=== PATIENT | male | born 1955 | race Hispanic/Latino ===

== ENCOUNTER 2019-06-15 | Emergency (ER) | payer MEDICARE ==
[~2019-06-15] MED LIST: GLYBURIDE5 MG PO; LOPRESSOR50 M1 PO; METFORMIN850 MG PO; PRILOSEC20 MG/CAP PO; TELMISARTAN40 MG PO; ZITHROMAX250 MG PO
--- NOTE | 2019-06-15 23:54 | NUR ---
BREATHING TREATMENT GIVEN.
[2019-06-16] MEDS ORDERED: ASPIRIN81 MG PO (00:13)
[2019-06-16] MEDS ORDERED: FENOFIBRATE145 MG PO (00:14)
[2019-06-16] MEDS ORDERED: AMOX/K CLAV875 M1 PO (02:18)
[2019-06-16] MEDS ORDERED: TESSALON PERLE100 MG PO (02:18)
[2019-06-16] MEDS ORDERED: PROVENTIL108 MCG/AC IN (02:18)
[2019-06-16] MEDS ORDERED: ALBUTEROL SUL0.083 % IN (03:28)
== END 2019-06-16 03:24 | disposition home or self-care (01) ==
DX: J40 Bronchitis, not specified as acute or chronic (principal)

== ENCOUNTER 2024-03-17 18:55 | Emergency (ER) | payer MEDICARE ==
[2024-03-17] VITALS (8 sets, daily range): BP systolic 129–151; BP diastolic 66–83
[~2024-03-17] VITALS: Ht 162.6 cm; Wt 102.0 kg
[~2024-03-17 18:55] MED LIST changes: +ALBUTEROL SUL0.083 % IN; +AMOX/K CLAV875 M1 PO; +ASPIRIN81 MG PO; +FENOFIBRATE145 MG PO; +METFORMIN HCL1000 MG PO; -METFORMIN850 MG PO; +PROVENTIL108 MCG/AC IN; +TESSALON PERLE100 MG PO
[2024-03-17] MEDS ORDERED: ORPHENADRINE CITRATE 30 MG/ML AMP IM ONE (19:25)
[2024-03-17] MEDS ORDERED: HYDROcodone 7.5 MG/Acetaminophen 325 MG/COMBO PO ONE (19:25)
[2024-03-17] MEDS ORDERED: GABAPENTIN300 M2 PO (21:03)
[2024-03-17] MEDS ORDERED: HYDROCO/APAP1 TA9 PO (21:03)
== END 2024-03-17 21:16 | disposition home or self-care (01) ==
LOC: ED 18:55
DX: M47.26 Other spondylosis with radiculopathy, lumbar region (principal); Z96.643 Presence of artificial hip joint, bilateral
CPT/HCPCS: J2360